=== PATIENT | female | born 1955 | race African-American/Black ===

== ENCOUNTER 2019-05-12 19:02 | Emergency (ER) | payer MEDICAID ==
[~2019-05-12] VITALS: Ht 157.5 cm; Wt 87.0 kg
[2019-05-12] MEDS ORDERED: TRAMADOL 50MG TABLET PO ONE (21:15)
[2019-05-12] MEDS ORDERED: ONDANSETRON 4MG ODT PO ONE (22:00)
[2019-05-12 23:28] LABS: EOSINOPHILS % 2.1 % (0.0-5.0); HEMOGLOBIN. 13.5 g/dL (12.0-16.0); LYMPHOCYTES % 40.3 % (20.0-50.0); MEAN CORPUSCULAR HEMOGLOBIN 29.3 pg (28.0-32.0); MEAN CORPUSCULAR VOLUME 86.8 fL (81.0-99.0); MEAN PLATELET VOLUME 6.5 fl (7.4-10.4); NEUTROPHILS % 50.6 % (40.0-76.0); PLATELET 305 x1000/uL (130-400); RED CELL DISTRIBUTION WIDTH 13.7 % (11.6-14.6)
[2019-05-12 23:33] LABS: CHLORIDE 108 mEq/L (98-107)
[2019-05-13 00:43] VITALS: BP 137/76
== END 2019-05-13 00:50 | disposition home or self-care (01) ==
LOC: ER 19:02
DX: R51 Headache (principal); R11.0 Nausea; I10 Essential (primary) hypertension; Z90.710 Acquired absence of both cervix and uterus; Z88.2 Allergy status to sulfonamides; Z88.5 Allergy status to narcotic agent
CPT/HCPCS: 36415; 70450; 71045; 80053; 84484; 85025; 93005; 99284; Q0162